=== PATIENT | male | born 1995 | race Caucasian/White ===

== ENCOUNTER 2024-09-25 19:49 | Emergency (ER) | payer SELFPAY ==
[2024-09-25 20:06] VITALS: BP 148/79; PULSE 73; RESP 14; TEMP 36.5; O2SAT 97; BMI 30.2
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
[2024-09-25 22:19] VITALS: BP 167/75; PULSE 71; RESP 16; O2SAT 96
[2024-09-25 23:28] VITALS: BP 151/81; PULSE 76; O2SAT 97
== END 2024-09-25 23:29 | disposition home or self-care (01) ==
PROVIDERS: Emergency Provider Physician Assistant
DX: S01.81XA Laceration without foreign body of other part of head, initial encounter (principal); S70.01XA Contusion of right hip, initial encounter; S20.311A Abrasion of right front wall of thorax, initial encounter; V19.9XXA Pedal cyclist (driver) (passenger) injured in unspecified traffic accident, initial encounter
CPT/HCPCS: 12013; 70450; 71045; 73502; 99284